=== PATIENT | male | born 2000 | race Caucasian/White ===

== ENCOUNTER 2020-11-29 19:24 | Emergency (ER) | payer MEDICAID, OTHER ==
[~2020-11-29] VITALS: Ht 182.9 cm; Wt 84.1 kg
[2020-11-29 20:03] VITALS: BP 145/88
[2020-11-29] MEDS ORDERED: ALBU8.5H8 INH (21:39)
== END 2020-11-29 21:40 | disposition home or self-care (01) ==
LOC: ER 19:25
DX: K92.1 Melena (principal); F17.200 Nicotine dependence, unspecified, uncomplicated; Z72.89 Other problems related to lifestyle; Z79.899 Other long term (current) drug therapy
CPT/HCPCS: 99283

== ENCOUNTER 2022-06-08 17:30 | Inpatient (IN) | payer MEDICAID ==
[~2022-06-08] VITALS: Ht 182.9 cm; Wt 82.0 kg
[~2022-06-08 17:30] MED LIST: ALBU8.5H17 INH
[2022-06-08] MEDS ORDERED: normal saline 1000ML IV soln IVB ONE (18:30)
[2022-06-08] MEDS ORDERED: metoclopramide 5 mg/ml inj IV ONE (18:30)
[2022-06-08] MEDS ORDERED: diphenhydrAMINE 50 mg/ml inj IV ONE (18:30)
[2022-06-08 18:43] LABS: ALANINE AMINOTRANSFERASE 26 U/L (12-78); ALBUMIN 4.1 G/DL (3.4-5.0); ALBUMIN/GLOBULIN RATIO 0.9 (1.1-1.5); ALKALINE PHOSPHATASE 66 IU/L (46-116); ANION GAP 12 (8-16); ASPARTATE AMINO TRANSFERASE 18 U/L (10-37); BILIRUBIN,TOTAL 1.2 MG/DL (0.1-1.0); BLOOD UREA NITROGEN 24 MG/DL (7-18); BUN/CREATININE RATIO 12.1 (5.4-32.0); CALCIUM 9.9 MG/DL (8.5-10.1); CHLORIDE 95 MMOL/L (99-107); CREATININE 1.98 MG/DL (0.60-1.10); GLUCOSE 113 MG/DL (70-104); LIPASE 70 U/L (73-393); POTASSIUM 3.7 MMOL/L (3.5-5.1); SODIUM 131 MMOL/L (135-145); TOTAL CARBON DIOXIDE 24.3 MMOL/L (24-32); TOTAL PROTEIN 8.5 G/DL (6.4-8.2); eGFR 42 ML/MIN
[2022-06-08] MEDS: pantoprazole 40mg Tablet.DR PO SCH ×2 (18:53→18:57)
[2022-06-08 19:37] LABS: BASOPHILS # (AUTO) 0.1 X10'3 (0-0.2); BASOPHILS % (AUTO) 0.5 % (0-1); EOSINOPHILS % (AUTO) 0.1 % (0-6); HEMATOCRIT 50.3 % (42.0-52.0); HEMOGLOBIN 17.7 g/dl (14.0-17.9); MEAN CORPUSCULAR HGB CONC 35.1 g/dL (33.0-36.5); MEAN CORPUSCULAR VOLUME 82.7 FL (78-98); MEAN PLATELET VOLUME 8.3 FL (7.4-10.4); MONOCYTES # (AUTO) 1.1 X10'3 (0-0.9); MONOCYTES % (AUTO) 6.6 % (2-12); NEUTROPHILS # (AUTO) 13.9 X10'3 (1.8-7.7); NEUTROPHILS % (AUTO) 86.8 % (42-75); PLATELET COUNT 205 X10'3 (140-440); RED BLOOD COUNT 6.09 X10'6 (4.70-6.10); RED CELL DISTRIBUTION WIDTH 13.4 % (11.5-14.5)
[2022-06-08] MEDS ORDERED: piperacillin/tazo 3.375gm/50ml 50 ML IV ONE (20:45)
[2022-06-08] MEDS ORDERED: magnesium Cl slow-release 64mg tablet PO PRN (21:20)
[2022-06-08] MEDS ORDERED: magnesium hydroxide 30ml (MOM) UD suspension PO PRN (21:20)
[2022-06-08] MEDS ORDERED: potassium Cl 20 mEq SR tablet PO PRN ×2 (21:20)
[2022-06-08] MEDS ORDERED: mag hydrox/Alum hydrox/simeth 30ml oral suspension PO PRN (21:20)
[2022-06-08] MEDS ORDERED: potassium Cl 40MEQ/1/2NS 520ml 520 ML IV PRN (21:20)
[2022-06-08] MEDS ORDERED: acetaminophen 325mg tablet PO PRN (21:20)
[2022-06-08] MEDS ORDERED: magnesium 4gm in 100ml NS 100 ML IV PRN (21:20)
[2022-06-08] MEDS: normal saline 1000ml 1,000 ML IV SCH (21:30)
[2022-06-08 21:32] LABS: MAGNESIUM 1.9 MG/DL (1.5-2.4)
[2022-06-08 22:22] LABS: CLARITY,URINE SLIGHTLY CLOUDY (Clear); COLOR,URINE YELLOW (Yellow); GLUCOSE, URINE NEGATIVE (Neg); KETONES,URINE 15 mg/dl (Neg); LEUKOCYTE ESTERASE ,URINE NEGATIVE (Neg); NITRITES, URINE NEGATIVE (Neg); OCCULT BLOOD,URINE NEGATIVE (Neg); PH,URINE 5.5 (4.8-8.0); PROTEIN,URINE 30 mg/dl (Neg); UROBILINOGEN,URINE 0.2 E.U/dL (0.2-1.0)
[2022-06-08] MEDS: morphine 2 MG/ML inj. syringe IV PRN (22:30)
[2022-06-08 22:32] LABS: UA COLLECTION TYPE CLN CATCH MIDSTREAM
[2022-06-08 22:34] LABS: MUCUS STRANDS FEW /LPF (Neg)
[2022-06-08 22:35] LABS: AMORPHOUS URATES 1+; BACTERIA,URINE FEW /HPF (Neg); RBC,URINE 0-2 /HPF (0-2); SQUAMOUS EPITHELIAL CELL,UR FEW /LPF (FEW); WBC,URINE 0-4 /HPF (0-4)
[2022-06-09] VITALS (23 sets, daily range): BP systolic 101–171; BP diastolic 51–103
[2022-06-09] MEDS: piperacillin/tazo 3.375gm/50ml 50 ML IV SCH ×3 (04:28→22:27)
[2022-06-09] MEDS: morphine 2 MG/ML inj. syringe IV PRN ×2 (04:44→19:58)
[2022-06-09] MEDS: normal saline 1000ml 1,000 ML IV SCH ×2 (06:49→19:30)
--- NOTE | 2022-06-09 07:16 | NUR ---
Patient in room ED 11. I have received report from MARILYN REYES and had the opportunity to ask questions and assume patient care.
[2022-06-09 07:22] LABS: BASOPHILS # (AUTO) 0.1 X10'3 (0-0.2); BASOPHILS % (AUTO) 0.5 % (0-1); EOSINOPHILS # (AUTO) 0.1 X10'3 (0-0.9); EOSINOPHILS % (AUTO) 0.5 % (0-6); HEMOGLOBIN 14.7 g/dl (14.0-17.9); LYMPHOCYTES # (AUTO) 1.3 X10'3 (1.1-4.8); LYMPHOCYTES % (AUTO) 11.9 % (21-51); MEAN CORPUSCULAR HEMOGLOBIN 29.2 PG (27.0-31.0); MEAN CORPUSCULAR HGB CONC 35.1 g/dL (33.0-36.5); MEAN CORPUSCULAR VOLUME 83.2 FL (78-98); MEAN PLATELET VOLUME 7.3 FL (7.4-10.4); MONOCYTES # (AUTO) 0.7 X10'3 (0-0.9); NEUTROPHILS # (AUTO) 8.5 X10'3 (1.8-7.7); NEUTROPHILS % (AUTO) 80.1 % (42-75); PLATELET COUNT 204 X10'3 (140-440); RED BLOOD COUNT 5.05 X10'6 (4.70-6.10); RED CELL DISTRIBUTION WIDTH 12.9 % (11.5-14.5); WHITE BLOOD COUNT 10.6 X10'3 (4.5-11.0)
[2022-06-09 07:42] LABS: ALANINE AMINOTRANSFERASE 35 U/L (12-78); ALBUMIN 3.1 G/DL (3.4-5.0); ALBUMIN/GLOBULIN RATIO 0.9 (1.1-1.5); ALKALINE PHOSPHATASE 73 IU/L (46-116); ANION GAP 10 (8-16); ASPARTATE AMINO TRANSFERASE 30 U/L (10-37); BILIRUBIN,TOTAL 1.2 MG/DL (0.1-1.0); BLOOD UREA NITROGEN 19 MG/DL (7-18); BUN/CREATININE RATIO 12.1 (5.4-32.0); CALCIUM 8.7 MG/DL (8.5-10.1); CHLORIDE 101 MMOL/L (99-107); CREATININE 1.57 MG/DL (0.60-1.10); GLUCOSE 105 MG/DL (70-104); POTASSIUM 3.4 MMOL/L (3.5-5.1); SODIUM 134 MMOL/L (135-145); TOTAL CARBON DIOXIDE 22.8 MMOL/L (24-32); TOTAL PROTEIN 6.7 G/DL (6.4-8.2); eGFR 56 ML/MIN
[2022-06-09] MEDS: K and/or MAG REPLACEMENT MC SCH ×2 (08:00→20:00)
[2022-06-09] MEDS: docusate sod 100mg capsule PO SCH ×2 (08:00→22:27)
[2022-06-09] MEDS ORDERED: hydrALAZINE 20mg/ml inj. IV PRN (13:50)
[2022-06-09] MEDS ORDERED: meperidine/PF 25mg/ml syringe IV PRN ×4 (13:50→16:35)
[2022-06-09] MEDS ORDERED: morphine 2 MG/ML inj. syringe IV PRN (13:50)
[2022-06-09] MEDS ORDERED: ringers solution, lacted 1,000 ML IV SCH (13:50)
[2022-06-09] MEDS ORDERED: ondansetron/PF 4mg/2ml inj IV PRN (13:50)
[2022-06-09] MEDS ORDERED: morphine 4 MG/ML inj SYRINge IV PRN (13:50)
[2022-06-09] MEDS ORDERED: labetalol 20mg/4ml (5mg/ml) syringe IV PRN (13:50)
--- NOTE | 2022-06-09 14:08 | NUR ---
Problems reprioritized. Patient report given, questions answered & plan of care reviewed with MARILYN PETERSON FROM [facility].
[2022-06-09] MEDS ORDERED: BUPIVAcaine/PF 2.5 mg/ml (0.25%) 30ml vial ONE (14:36)
[2022-06-09] MEDS ORDERED: sevoflurane 250ml liquid IH ONE (15:37)
[2022-06-09] MEDS ORDERED: dexamethasone sod phosphate 10mg/ml inj ONE (15:37)
[2022-06-09] MEDS ORDERED: ketorolac trometh. 30mg/ml inj. ONE (15:37)
[2022-06-09] MEDS ORDERED: propofol 10mg/ml 20ml vial IV ONE (15:37)
[2022-06-09] MEDS ORDERED: fentaNYL/PF 50MCG/1 ML 2ML syringe ONE ×2 (15:39→16:12)
[2022-06-09] MEDS ORDERED: midazolam 1 mg/ML 2ml injection ONE (15:39)
[2022-06-09] MEDS ORDERED: LIDOcaine 1%/PF 5ML 10 MG/ML VIAL ONE (15:40)
[2022-06-09] MEDS ORDERED: rocuronium 10mg/ml inj IV ONE ×2 (15:40→16:12)
[2022-06-09] MEDS ORDERED: neostigmine methylsulfate 1 MG/ML 10ml vial ONE (15:40)
[2022-06-09] MEDS ORDERED: ondansetron/PF 4mg/2ml inj ONE (15:41)
[2022-06-09] MEDS ORDERED: glycopyrrolate 0.2mg/ml inj ONE (15:41)
--- NOTE | 2022-06-09 16:25 | NUR ---
Received from OR via BED, accompanied by Anesthesiologist and report given by Anesthesiologist. PATIENT WAKING UP, NO S/S OF PAIN, V/S WNL, SCD ON, 20G TO LUE, RIGHT WRIST THUMB DRESSING CDI . ICE AND ELEVATED RUE. Addendum: 06/09/22 at 1649 by Joshua River RN WRONG PATIENT
--- NOTE | 2022-06-09 16:38 | NUR ---
Received from OR via BED IN STABLE CONDITION , accompanied by Anesthesiologist and SHIPPING INSPECTOR report given by SHIPPING INSPECTOR AND Anesthesiolgist. Addendum: 06/09/22 at 1737 by Lelo Padilla RN Amended: Links added.
[2022-06-09] MEDS ORDERED: acetaminophen 1,000mg/100ml IV 100 ML IV STA (16:49)
[2022-06-09] MEDS: ondansetron/PF 4mg/2ml inj IV PRN (17:51)
--- NOTE | 2022-06-09 17:58 | NUR ---
PATIENT DISCHARGED FROM PACU IN STABLE CONDITION AFTER REPORT GIVEN TO RN TAKING OVER PATIENTS CARE. PATIENT TRANSFERRED TO ROOM 350A VIA BED WITH RN X2. Addendum: 06/09/22 at 1818 by Lelo Padilla RN Amended: Links added.
--- NOTE | 2022-06-09 18:00 | NUR ---
Patient in room TAD 350A. I have received report from MARILYN POPE FROM [facility] and had the opportunity to ask questions and assume patient care.
[2022-06-09] MEDS ORDERED: NO HOME MEDS (18:37)
--- NOTE | 2022-06-09 18:55 | NUR ---
Problems reprioritized. Patient report given, questions answered & plan of care reviewed with MARILYN REDD.
[2022-06-09] MEDS: Melatonin 3mg tablet PO PRN (22:27)
[2022-06-10 02:00] VITALS: BP 138/75
[2022-06-10] MEDS: morphine 2 MG/ML inj. syringe IV PRN ×5 (02:33→23:02)
[2022-06-10] MEDS: normal saline 1000ml 1,000 ML IV SCH ×3 (03:20→23:20)
[2022-06-10] MEDS: piperacillin/tazo 3.375gm/50ml 50 ML IV SCH ×3 (05:09→19:54)
[2022-06-10 06:00] VITALS: BP 121/71
--- NOTE | 2022-06-10 06:09 | NUR ---
Report given to RN. All questions answered.
--- NOTE | 2022-06-10 06:45 | NUR ---
Patient in room TAD 350A. I have received report from MARILYN REDD and had the opportunity to ask questions and assume patient care.
[2022-06-10] MEDS: pantoprazole 40mg Tablet.DR PO SCH ×2 (06:46→07:54)
[2022-06-10 06:47] LABS: BASOPHILS % (AUTO) 0.1 % (0-1); EOSINOPHILS % (AUTO) 0 % (0-6); HEMATOCRIT 37.4 % (42.0-52.0); LYMPHOCYTES # (AUTO) 0.5 X10'3 (1.1-4.8); LYMPHOCYTES % (AUTO) 5.2 % (21-51); MEAN CORPUSCULAR HEMOGLOBIN 29.3 PG (27.0-31.0); MEAN CORPUSCULAR HGB CONC 34.8 g/dL (33.0-36.5); MEAN CORPUSCULAR VOLUME 84.2 FL (78-98); MEAN PLATELET VOLUME 8.4 FL (7.4-10.4); MONOCYTES # (AUTO) 0.6 X10'3 (0-0.9); MONOCYTES % (AUTO) 5.8 % (2-12); NEUTROPHILS # (AUTO) 9.1 X10'3 (1.8-7.7); NEUTROPHILS % (AUTO) 88.9 % (42-75); PLATELET COUNT 203 X10'3 (140-440); RED BLOOD COUNT 4.44 X10'6 (4.70-6.10); RED CELL DISTRIBUTION WIDTH 13.2 % (11.5-14.5); WHITE BLOOD COUNT 10.3 X10'3 (4.5-11.0)
[2022-06-10 07:16] LABS: ALANINE AMINOTRANSFERASE 28 U/L (12-78); ALBUMIN 2.6 G/DL (3.4-5.0); ALBUMIN/GLOBULIN RATIO 0.7 (1.1-1.5); ALKALINE PHOSPHATASE 60 IU/L (46-116); ANION GAP 11 (8-16); ASPARTATE AMINO TRANSFERASE 20 U/L (10-37); BILIRUBIN,TOTAL 0.7 MG/DL (0.1-1.0); BLOOD UREA NITROGEN 16 MG/DL (7-18); BUN/CREATININE RATIO 13.1 (5.4-32.0); CALCIUM 8.4 MG/DL (8.5-10.1); CHLORIDE 102 MMOL/L (99-107); CREATININE 1.22 MG/DL (0.60-1.10); GLUCOSE 136 MG/DL (70-104); MAGNESIUM 2.2 MG/DL (1.5-2.4); SODIUM 136 MMOL/L (135-145); TOTAL CARBON DIOXIDE 22.8 MMOL/L (24-32); TOTAL PROTEIN 6.1 G/DL (6.4-8.2); eGFR 74 ML/MIN
[2022-06-10] MEDS: docusate sod 100mg capsule PO SCH ×2 (07:55→19:54)
[2022-06-10] MEDS: K and/or MAG REPLACEMENT MC SCH ×2 (08:00→20:19)
[2022-06-10 10:00] VITALS: BP 121/63
[2022-06-10] MEDS: HYDROcodone/acetaminophen 5mg/325mg tablet PO PRN (15:34)
[2022-06-10 18:00] VITALS: BP 132/79
[2022-06-10] MEDS: Melatonin 3mg tablet PO PRN (21:30)
[2022-06-10 22:00] VITALS: BP 153/74
[2022-06-11] MEDS: ondansetron/PF 4mg/2ml inj IV PRN ×3 (00:41→16:46)
[2022-06-11] MEDS: morphine 2 MG/ML inj. syringe IV PRN ×6 (02:26→18:52)
[2022-06-11] MEDS: piperacillin/tazo 3.375gm/50ml 50 ML IV SCH ×3 (04:10→20:29)
[2022-06-11 06:53] VITALS: BP 145/79
[2022-06-11] MEDS: pantoprazole 40mg Tablet.DR PO SCH (07:08)
[2022-06-11] MEDS: docusate sod 100mg capsule PO SCH ×2 (07:12→20:00)
[2022-06-11 07:25] VITALS: BP 141/83
[2022-06-11 07:25] LABS: BASOPHILS % (AUTO) 0.1 % (0-1); EOSINOPHILS % (AUTO) 0.1 % (0-6); HEMATOCRIT 44.6 % (42.0-52.0); HEMOGLOBIN 15.1 g/dl (14.0-17.9); LYMPHOCYTES # (AUTO) 1.1 X10'3 (1.1-4.8); LYMPHOCYTES % (AUTO) 8.6 % (21-51); MEAN CORPUSCULAR HEMOGLOBIN 28.8 PG (27.0-31.0); MEAN CORPUSCULAR HGB CONC 33.9 g/dL (33.0-36.5); MEAN CORPUSCULAR VOLUME 84.8 FL (78-98); MEAN PLATELET VOLUME 7.7 FL (7.4-10.4); MONOCYTES # (AUTO) 1.2 X10'3 (0-0.9); MONOCYTES % (AUTO) 9.1 % (2-12); NEUTROPHILS # (AUTO) 10.9 X10'3 (1.8-7.7); NEUTROPHILS % (AUTO) 82.1 % (42-75); PLATELET COUNT 291 X10'3 (140-440); RED BLOOD COUNT 5.25 X10'6 (4.70-6.10); RED CELL DISTRIBUTION WIDTH 13.5 % (11.5-14.5); WHITE BLOOD COUNT 13.3 X10'3 (4.5-11.0)
[2022-06-11 08:00] LABS: ALANINE AMINOTRANSFERASE 33 U/L (12-78); ALBUMIN 2.8 G/DL (3.4-5.0); ALBUMIN/GLOBULIN RATIO 0.8 (1.1-1.5); ALKALINE PHOSPHATASE 85 IU/L (46-116); ANION GAP 10 (8-16); ASPARTATE AMINO TRANSFERASE 19 U/L (10-37); BILIRUBIN,TOTAL 0.7 MG/DL (0.1-1.0); BLOOD UREA NITROGEN 13 MG/DL (7-18); BUN/CREATININE RATIO 10.2 (5.4-32.0); CALCIUM 8.7 MG/DL (8.5-10.1); CHLORIDE 103 MMOL/L (99-107); CREATININE 1.28 MG/DL (0.60-1.10); GLUCOSE 121 MG/DL (70-104); MAGNESIUM 2.1 MG/DL (1.5-2.4); POTASSIUM 3.5 MMOL/L (3.5-5.1); SODIUM 138 MMOL/L (135-145); TOTAL CARBON DIOXIDE 24.7 MMOL/L (24-32); TOTAL PROTEIN 6.4 G/DL (6.4-8.2); eGFR 70 ML/MIN
[2022-06-11] MEDS: K and/or MAG REPLACEMENT MC SCH ×2 (08:00→20:00)
[2022-06-11 11:00] VITALS: BP 156/93
[2022-06-11] MEDS: normal saline 1000ml 1,000 ML IV SCH ×2 (12:41→20:31)
[2022-06-11 13:37] VITALS: BP 148/82
--- NOTE | 2022-06-11 17:30 | NUR ---
Student documentation: I have reviewed and agree with all interventions, assessments performed and documented by SN Nabeel.
[2022-06-11 19:00] VITALS: BP 135/84
--- NOTE | 2022-06-11 19:01 | NUR ---
Problems reprioritized. Patient report given, questions answered & plan of care reviewed with SANJIV KINCAID RN.
--- NOTE | 2022-06-11 19:02 | NUR ---
Patient in room TAD 350. I have received report from KALIE SANDERS and had the opportunity to ask questions and assume patient care.
[2022-06-11] MEDS: Melatonin 3mg tablet PO PRN (20:41)
[2022-06-11] MEDS: HYDROcodone/acetaminophen 5mg/325mg tablet PO PRN (20:42)
[2022-06-11 23:00] VITALS: BP 145/83
[2022-06-12] MEDS: morphine 2 MG/ML inj. syringe IV PRN ×3 (01:05→20:08)
--- NOTE | 2022-06-12 01:15 | NUR ---
Patient report given, questions answered & plan of care reviewed with TRAMAINE SANDERS.
[2022-06-12] MEDS: HYDROcodone/acetaminophen 5mg/325mg tablet PO PRN ×4 (02:50→23:35)
[2022-06-12] MEDS: piperacillin/tazo 3.375gm/50ml 50 ML IV SCH ×3 (03:53→20:06)
[2022-06-12] MEDS: normal saline 1000ml 1,000 ML IV SCH ×2 (03:58→15:20)
--- NOTE | 2022-06-12 06:33 | NUR ---
Patient in room TAD 350. I have received report from TRAMAINE RN and had the opportunity to ask questions and assume patient care.
[2022-06-12 06:35] LABS: BASOPHILS % (AUTO) 0.3 % (0-1); EOSINOPHILS # (AUTO) 0.2 X10'3 (0-0.9); EOSINOPHILS % (AUTO) 1.4 % (0-6); HEMATOCRIT 38.7 % (42.0-52.0); HEMOGLOBIN 13.1 g/dl (14.0-17.9); LYMPHOCYTES # (AUTO) 1.6 X10'3 (1.1-4.8); LYMPHOCYTES % (AUTO) 14.8 % (21-51); MEAN CORPUSCULAR HEMOGLOBIN 28.7 PG (27.0-31.0); MEAN CORPUSCULAR HGB CONC 33.9 g/dL (33.0-36.5); MEAN CORPUSCULAR VOLUME 84.6 FL (78-98); MEAN PLATELET VOLUME 7.2 FL (7.4-10.4); MONOCYTES % (AUTO) 9.3 % (2-12); NEUTROPHILS # (AUTO) 8.2 X10'3 (1.8-7.7); NEUTROPHILS % (AUTO) 74.2 % (42-75); PLATELET COUNT 282 X10'3 (140-440); RED BLOOD COUNT 4.57 X10'6 (4.70-6.10); RED CELL DISTRIBUTION WIDTH 13.3 % (11.5-14.5); WHITE BLOOD COUNT 11.1 X10'3 (4.5-11.0)
[2022-06-12 06:52] VITALS: BP 149/79
[2022-06-12 06:58] LABS: ANION GAP 8 (8-16); BILIRUBIN,TOTAL 0.5 MG/DL (0.1-1.0); BLOOD UREA NITROGEN 12 MG/DL (7-18); BUN/CREATININE RATIO 10.7 (5.4-32.0); CALCIUM 8.5 MG/DL (8.5-10.1); CHLORIDE 104 MMOL/L (99-107); CREATININE 1.12 MG/DL (0.60-1.10); GLUCOSE 98 MG/DL (70-104); MAGNESIUM 2.1 MG/DL (1.5-2.4); POTASSIUM 3.6 MMOL/L (3.5-5.1); SODIUM 140 MMOL/L (135-145); TOTAL CARBON DIOXIDE 28.1 MMOL/L (24-32); eGFR 82 ML/MIN
[2022-06-12 06:59] LABS: ALANINE AMINOTRANSFERASE 22 U/L (12-78); ALBUMIN 2.4 G/DL (3.4-5.0); ALBUMIN/GLOBULIN RATIO 0.7 (1.1-1.5); ALKALINE PHOSPHATASE 68 IU/L (46-116); ASPARTATE AMINO TRANSFERASE 17 U/L (10-37); TOTAL PROTEIN 5.7 G/DL (6.4-8.2)
[2022-06-12] MEDS: docusate sod 100mg capsule PO SCH ×2 (07:12→20:00)
[2022-06-12] MEDS: K and/or MAG REPLACEMENT MC SCH ×2 (07:12→20:20)
[2022-06-12] MEDS: pantoprazole 40mg Tablet.DR PO SCH (07:38)
--- NOTE | 2022-06-12 09:35 | NUR ---
Initial: Pt admit DX sepsis secondary to acute appendicitis w/ microperforation and local abscess, acute renal failure likely secondary to dehydration per EMR. Pt s/p laparoscopic appendectomy 06/09 advanced to clears then full liquids 06/10 but regressed back to clears 06/11 refusing meal intake w/ more tender abdomen pending gas/stool output this admit per EMR. Noted pt drinks 6 beers/day typically per H&P; RD paged DO and d/w RN routine thiamine, folic acid supplementation if physician agreeable. Per RN, pt continues to refuse colace this admit reporting it makes him feel worse despite current constipation. Per RN, prior N/V resolved at this time. Will monitor for PO diet advancement/tolerance and further nutrition intervention needs this admit. Rec; 1. advance diet to regular as medically indicated 2. IF prolonged restrictive diet consider ONS if PO acceptance/tolerance 3. thiamine, folic acid supplementation per physician discretion; drinks 6 beers/day per H&P 4. routine bowel care; encourage compliance w/ at least 4 days constipation this admit 5. scaled wt this admit; risa weekly wts Addendum: 06/12/22 at [address] Amended: Links added.
[2022-06-12 10:00] VITALS: BP 138/74
[2022-06-12] MEDS ORDERED: LORazepam 2 mg/ml vial IV ONE ×2 (11:00→11:50)
[2022-06-12] MEDS ORDERED: LORazepam 2 mg/ml vial IM ONE (11:45)
[2022-06-12] MEDS ORDERED: LORazepam 2 mg/ml vial ONE (11:47)
[2022-06-12] MEDS ORDERED: LORazepam 2 mg/ml vial IV PRN (13:00)
[2022-06-12 18:00] VITALS: BP 150/86
--- NOTE | 2022-06-12 19:32 | NUR ---
Patient in room TAD 350. I have received report from KALIE SANDERS and had the opportunity to ask questions and assume patient care.
[2022-06-12 22:00] VITALS: BP 143/90
[2022-06-13] MEDS: Melatonin 3mg tablet PO PRN (00:05)
[2022-06-13] MEDS: normal saline 1000ml 1,000 ML IV SCH ×3 (02:26→21:08)
[2022-06-13] MEDS: piperacillin/tazo 3.375gm/50ml 50 ML IV SCH ×3 (04:07→20:23)
[2022-06-13] MEDS: HYDROcodone/acetaminophen 5mg/325mg tablet PO PRN ×4 (05:19→23:53)
[2022-06-13 06:00] VITALS: BP 142/88
--- NOTE | 2022-06-13 06:30 | NUR ---
Problems reprioritized. Patient report given, questions answered & plan of care reviewed with Penny SANDERS.
[2022-06-13 06:56] LABS: BASOPHILS # (AUTO) 0.1 X10'3 (0-0.2); BASOPHILS % (AUTO) 0.6 % (0-1); EOSINOPHILS # (AUTO) 0.2 X10'3 (0-0.9); EOSINOPHILS % (AUTO) 2.7 % (0-6); HEMATOCRIT 37.4 % (42.0-52.0); HEMOGLOBIN 12.7 g/dl (14.0-17.9); LYMPHOCYTES # (AUTO) 1.6 X10'3 (1.1-4.8); LYMPHOCYTES % (AUTO) 17.2 % (21-51); MEAN CORPUSCULAR HEMOGLOBIN 28.7 PG (27.0-31.0); MEAN CORPUSCULAR HGB CONC 34.1 g/dL (33.0-36.5); MEAN PLATELET VOLUME 6.9 FL (7.4-10.4); MONOCYTES # (AUTO) 0.8 X10'3 (0-0.9); MONOCYTES % (AUTO) 8.8 % (2-12); NEUTROPHILS # (AUTO) 6.5 X10'3 (1.8-7.7); NEUTROPHILS % (AUTO) 70.7 % (42-75); PLATELET COUNT 324 X10'3 (140-440); RED BLOOD COUNT 4.45 X10'6 (4.70-6.10); RED CELL DISTRIBUTION WIDTH 13.2 % (11.5-14.5); WHITE BLOOD COUNT 9.2 X10'3 (4.5-11.0)
[2022-06-13 07:12] LABS: ALANINE AMINOTRANSFERASE 24 U/L (12-78); ALBUMIN 2.5 G/DL (3.4-5.0); ALBUMIN/GLOBULIN RATIO 0.7 (1.1-1.5); ALKALINE PHOSPHATASE 73 IU/L (46-116); ANION GAP 7 (8-16); ASPARTATE AMINO TRANSFERASE 18 U/L (10-37); BILIRUBIN,TOTAL 0.5 MG/DL (0.1-1.0); BLOOD UREA NITROGEN 9 MG/DL (7-18); BUN/CREATININE RATIO 9.1 (5.4-32.0); CALCIUM 8.5 MG/DL (8.5-10.1); CHLORIDE 103 MMOL/L (99-107); CREATININE 0.99 MG/DL (0.60-1.10); GLUCOSE 95 MG/DL (70-104); SODIUM 139 MMOL/L (135-145); TOTAL CARBON DIOXIDE 28.9 MMOL/L (24-32); TOTAL PROTEIN 5.9 G/DL (6.4-8.2); eGFR > 90 ML/MIN
[2022-06-13] MEDS: K and/or MAG REPLACEMENT MC SCH ×3 (08:00→20:59)
[2022-06-13] MEDS: docusate sod 100mg capsule PO SCH (08:00)
[2022-06-13] MEDS: pantoprazole 40mg Tablet.DR PO SCH (08:32)
[2022-06-13] MEDS: morphine 2 MG/ML inj. syringe IV PRN ×2 (08:34→21:08)
[2022-06-13] MEDS ORDERED: magnesium 4gm in 100ml NS 100 ML IV PRN (08:50)
[2022-06-13] MEDS ORDERED: potassium Cl 20 mEq SR tablet PO PRN (08:50)
[2022-06-13] MEDS ORDERED: potassium Cl 40MEQ/1/2NS 520ml 520 ML IV PRN (08:50)
[2022-06-13] MEDS ORDERED: magnesium Cl slow-release 64mg tablet PO PRN (08:50)
[2022-06-13] MEDS ORDERED: methylnaltrexone br 12mg/0.6ml inj***SubQ only SQ ONE (09:12)
[2022-06-13] MEDS: metoclopramide 5 mg/ml inj IV SCH ×3 (09:32→20:23)
[2022-06-13 10:00] VITALS: BP 148/94
[2022-06-13] MEDS: potassium Cl 20 mEq SR tablet PO PRN ×2 (10:37→17:24)
--- NOTE | 2022-06-13 14:30 | NUR ---
Spoke to pharmacy and ok to give patients reglan now 1st dose was given at 0930.
[2022-06-13 18:00] VITALS: BP 140/90
--- NOTE | 2022-06-13 18:44 | NUR ---
Problems reprioritized. Patient report given, questions answered & plan of care reviewed with Prudence RN.
[2022-06-13 22:00] VITALS: BP 157/75
[2022-06-14] MEDS: potassium Cl 20 mEq SR tablet PO PRN (00:49)
[2022-06-14] MEDS: metoclopramide 5 mg/ml inj IV SCH ×3 (02:18→14:28)
[2022-06-14] MEDS: piperacillin/tazo 3.375gm/50ml 50 ML IV SCH (03:40)
[2022-06-14] MEDS: morphine 2 MG/ML inj. syringe IV PRN (04:04)
[2022-06-14 06:00] VITALS: BP 129/84
--- NOTE | 2022-06-14 06:43 | NUR ---
Problems reprioritized. Patient report given, questions answered & plan of care reviewed with MARILYN Gomez and MARILYN Morton.
[2022-06-14] MEDS: normal saline 1000ml 1,000 ML IV SCH (07:07)
[2022-06-14] MEDS: K and/or MAG REPLACEMENT MC SCH ×2 (08:00)
[2022-06-14] MEDS: pantoprazole 40mg Tablet.DR PO SCH (08:25)
[2022-06-14 10:00] VITALS: BP 138/87
[2022-06-14] MEDS ORDERED: LORazepam 0.5 MG tablet PO ONE (12:15)
[2022-06-14] MEDS ORDERED: AMOX-580 PO (12:16)
[2022-06-14] MEDS ORDERED: amox tr/potassium clavulanate 875/125mg TAB PO SCH (17:30)
== END 2022-06-14 15:22 | disposition home or self-care (01) | DRG 710 ==
LOC: ER 17:32 → ED HOLD 21:20 → EDBEDREQ 06-09 06:08 → SUR 3N 06-09 07:20
PROVIDERS: ADMIT Internal Medicine; ATTEND Family Medicine
PROC: 0W9J4ZZ Drainage of Pelvic Cavity, Percutaneous Endoscopic Approach (ICD-10-PCS; 2022-06-09)
PROC: 0DTJ4ZZ Resection of Appendix, Percutaneous Endoscopic Approach (ICD-10-PCS; principal; 2022-06-09 15:37)
DX: A41.9 Sepsis, unspecified organism (principal); N17.9 Acute kidney failure, unspecified; K35.33 Acute appendicitis with perforation, localized peritonitis, and gangrene, with abscess; E87.1 Hypo-osmolality and hyponatremia; K56.7 Ileus, unspecified; F41.9 Anxiety disorder, unspecified; K64.9 Unspecified hemorrhoids; J45.909 Unspecified asthma, uncomplicated; E87.6 Hypokalemia; Z20.822 Contact with and (suspected) exposure to COVID-19; Z88.2 Allergy status to sulfonamides; Z79.899 Other long term (current) drug therapy
CPT/HCPCS: 36415; 71045; 74018; 74176; 80053; 81001; 82948; 83690; 83735; 84132; 84145; 85025; 87081; 87811; 93005; 96361; 96374; 99285; A4215; A4618; A7000; G0378; J0131; J1100; J1200; J1885; J2060; J2212; J2250; J2270; J2405; J2543; J2704; J2710; J2765; J3010; J3490; J7030; J7120

== ENCOUNTER 2024-05-17 23:14 | Emergency (ER) | payer MEDICAID ==
[~2024-05-17] VITALS: Ht 180.3 cm; Wt 86.4 kg
[~2024-05-17 23:14] MED LIST changes: -ALBU8.5H17 INH; +NO HOME MEDS
[2024-05-18 00:11] VITALS: BP 140/90; PULSE 80; RESP 18; TEMP 98.6; O2SAT 99
== END 2024-05-18 00:19 | disposition home or self-care (01) ==
LOC: ER 23:15
DX: S93.401A Sprain of unspecified ligament of right ankle, initial encounter (principal); Z88.2 Allergy status to sulfonamides; X58.XXXA Exposure to other specified factors, initial encounter; Y93.89 Activity, other specified; Y92.89 Other specified places as the place of occurrence of the external cause; Y99.8 Other external cause status
CPT/HCPCS: 73610; 99283